=== PATIENT | male | born 1980 | race Caucasian/White ===

== ENCOUNTER 2022-04-08 14:57 | Emergency (ER) | payer OTHER, SELFPAY ==
[2022-04-08 14:57] VITALS: BP 168/97; PULSE 79; RESP 18; TEMP 36.5; O2SAT 95; BMI 52.2
--- NOTE | 2022-04-08 15:06 | RAD_ITS ---
STUDY: X-RAY - RIGHT HAND REASON FOR EXAM: Male, 41 years old. Pain TECHNIQUE: 3 view(s) of the hand. COMPARISON: None. FINDINGS: Normal radiocarpal articulation. Normal distal radioulnar joint. Well-defined bony density on the dorsal aspect of the wrist could be due to remote injury. Normal carpal articulations Dislocation of the proximal interphalangeal joint of the third finger. No demonstrated definite fracture. The remainder of the osseous structures appear intact. 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 The remainder of the joint spaces are within normal limits. RAD/Hand Min 3 Views IMPRESSION: Dislocation of the proximal interphalangeal joint of the third finger. Electronically Signed: Sonido Garcia MD at 15:50 EDT ,
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
[2022-04-08] MEDS: Lidocaine 2% (20 ml mdv) 20 ML Vial INFILT (15:14)
[2022-04-08] MEDS: Ondansetron 4 MG/2 ML Vial IV (15:14)
[2022-04-08] MEDS: Morphine 4 MG/ML Syringe IV ×2 (15:14→16:35)
--- NOTE | 2022-04-08 15:20 | RAD_ITS ---
STUDY: X-RAY - LEFT HAND REASON FOR EXAM: Male, 41 years old. INJURY TO BOTH HANDS TECHNIQUE: 3 view(s) of the hand. COMPARISON: None. FINDINGS: Normal radiocarpal articulation. Normal distal radioulnar joint. Normal visualized carpal bones. Normal carpal articulations Normal carpometacarpal articulation of the thumb. Normal second through fifth carpometacarpal joints. Normal metacarpi. Normal metacarpophalangeal joint of the thumb. Normal interphalangeal joint of the thumb. Normal proximal and distal phalanges of the thumb. Dislocation of the proximal interphalangeal joints of the third and fourth fingers. No demonstrated definite fracture. RAD/Hand Min 3 Views IMPRESSION: Dislocation of the proximal interphalangeal joints of the third and fourth fingers. Electronically Signed: Sonido Garcia MD at 15:51 EDT ,
--- NOTE | 2022-04-08 16:25 | RAD_ITS ---
EXAM: XR RIGHT HAND COMPLETE, 3 OR MORE VIEWS CLINICAL INDICATION: post reduction TECHNIQUE: Frontal, lateral and oblique views of the right hand. This report was created using [employer] report generation technology. COMPARISON: XR Hand dated 04/08/2022 FINDINGS: BONES/JOINTS: Reduction of the third PIP joint dislocation. No discrete fracture identified. SOFT TISSUES: Residual soft tissue swelling of the third finger. No radiopaque foreign body. RAD/Hand Min 3 Views IMPRESSION: Satisfactory reduction of the PIP joint dislocation. Electronically Signed: Steven Sweeney MD at 16:50 EDT ,
--- NOTE | 2022-04-08 16:36 | RAD_ITS ---
EXAM: XR LEFT HAND COMPLETE, 3 OR MORE VIEWS CLINICAL INDICATION: post reduction TECHNIQUE: Frontal, lateral and oblique views of the left hand. This report was created using [employer] report generation technology. COMPARISON: XR Hand dated 04/08/2022 FINDINGS: BONES/JOINTS: Reduction of the dislocated third and fourth PIP joints. No evidence of acute fracture. SOFT TISSUES: Residual soft tissue swelling of the third and fourth fingers. No radiopaque foreign body. RAD/Hand Min 3 Views IMPRESSION: Satisfactory reduction of the third and fourth PIP joint dislocations. Electronically Signed: Steven Sweeney MD at 16:51 EDT ,
--- NOTE | 2022-04-08 16:59 | EX.ED.UPPERE ---
HPI History of Present Illness Chief Complaint: Upper Extremity Injury [facility] Medical History Diabetes HTN (hypertension) Home Medications hydrocodone-acetaminophen 5-325mg 5mg-325mg 1 tab PO Q6H PRN pain 3 days #10 tabs 04/08/22 [Rx Last Taken Unknown] Allergy/AdvReac Type Severity Reaction Status Date / Time naproxen [From Naprosyn] Allergy Hives Verified 04/08/22 14:59 Surgical History History of heart artery stent Social History Smoking Status: Current every day smoker tobacco type: cigarettes EXAM Physical Exam Const Vital Signs: 04/08/22 14:57 Temperature 97.7 F L Temperature Source Temporal Pulse Rate 79 Respiratory Rate 18 Blood Pressure 168/97 H Blood Pressure Mean 120 Pulse Ox 95 Oxygen Delivery Method Room Air MDM MDM Radiography Diagnostic Testing: Clinical Impression(s) from Imaging Studies Hand X-Ray 04/08/22 15:06 IMPRESSION: Dislocation of the proximal interphalangeal joint of the third finger. Electronically Signed: Sonido Garcia MD at 15:50 EDT , Hand X-Ray 04/08/22 15:20 IMPRESSION: Dislocation of the proximal interphalangeal joints of the third and fourth fingers. Electronically Signed: Sonido Garcia MD at 15:51 EDT , Hand X-Ray 04/08/22 16:25 IMPRESSION: Satisfactory reduction of the PIP joint dislocation. Electronically Signed: Steven Sweeney MD at 16:50 EDT , Hand X-Ray 04/08/22 16:36 IMPRESSION: Satisfactory reduction of the third and fourth PIP joint dislocations. Electronically Signed: Steven Sweeney MD at 16:51 EDT , Discharge Plan Triage Chief Complaint: Upper Extremity Injury ED Provider: Gilmar Smith Dx/Rx/DC Orders Instructions: ED Finger Dislocation Prescriptions: New hydrocodone-acetaminophen 5-325 mg tablet 1 tab PO Q6H PRN (Reason: pain) 3 Days Qty: 10 0RF Primary Care Provider: Care Physician,No Primary Referrals: Eduardo Hicks DO [Med Staff - Active Staff] - 3-5 Days NOT,DEFINED [NON-STAFF] - Disposition Disposition: Home, Self Care Discharge Date/Time: 04/08/22 17:16
== END 2022-04-08 17:16 | disposition home or self-care (01) ==
PROVIDERS: Emergency Provider Student in an Organized Health Care Education/Training Program; Visit Provider Student in an Organized Health Care Education/Training Program
DX: S63.252A Unspecified dislocation of right middle finger, initial encounter (principal); S63.253A Unspecified dislocation of left middle finger, initial encounter; S63.255A Unspecified dislocation of left ring finger, initial encounter; F17.210 Nicotine dependence, cigarettes, uncomplicated; Z95.5 Presence of coronary angioplasty implant and graft; W19.XXXA Unspecified fall, initial encounter
CPT/HCPCS: 73130; 96374; 96375; 96376; 99284; A4216; J2405